=== PATIENT | male | born 1990 | race Two or more races ===

== ENCOUNTER 2021-12-02 21:38 | Emergency (ER) | payer SELFPAY ==
[2021-12-02 22:35] LABS: RED BLOOD COUNT 4.79 M/UL (4.20-5.50); WHITE BLOOD COUNT 8.3 K/UL (4.5-11.0)
[2021-12-02 23:09] LABS: BUN/CREATININE RATIO 13 (0-10)
[2021-12-02] MEDS ORDERED: AMOX TR-K CLV1 EAC4 PO (23:20)
[2021-12-02] MEDS ORDERED: ZOFRAN 4 MG TAB4 MG PO (23:20)
== END 2021-12-02 23:57 | disposition home or self-care (01) ==
LOC: ER1 21:38
PROVIDERS: Physician Assistant
DX: K57.32 Diverticulitis of large intestine without perforation or abscess without bleeding (principal)
CPT/HCPCS: 80053; 81001; 85025; 96374; 96375; 99284; J1885; J2270; J2405; Q9967